=== PATIENT | female | born 1970 | race Caucasian/White ===

== ENCOUNTER 2021-08-18 17:17 | Emergency (ER) | payer OTHER ==
[2021-08-18] MEDS ORDERED: cefTRIAXone 1 GM Vial IM ONE (17:51)
--- NOTE | 2021-08-18 17:59 | EDM.PDOC ---
ED HPI GENERAL MEDICAL PROBLEM - General Chief Complaint: ENT Problem Stated Complaint: EAR INFECTION Time Seen by Provider: 08/18/21 17:25 Source of Information: Reports: Patient History Limitations: Reports: No Limitations - History of Present Illness INITIAL COMMENTS - FREE TEXT/NARRATIVE: Urgency department with complaints of left ear discomfort. Patient was seen on Sunday in the clinic for left ear discomfort and was given Ciprodex drops for an external otitis externa. Patient states that it has not gotten any better she called the clinic earlier today and they stated that she have a phone call back she called later in the afternoon since she did not hear back from them and they stated that they again would call her back and he never did. She comes into the emergency department due to the extreme amount of pain and discomfort she has in that left ear. Patient states that the drops have not helped with any of the discomfort she states that when she uses the eardrops it actually causes her to want to cry and becomes very tearful due to the discomfort and pain. She has not noticed any drainage she states that hearing is muffled in that ear. Patient denies any fever, nausea, vomiting. Onset: Gradual Location: Reports: Head Quality: Reports: Ache, Throbbing Severity: Moderate Improves with: Reports: None Worsens with: Reports: None Context: Reports: Other - Related Data Allergies Allergy/AdvReac Type Severity Reaction Status Date / Time No Known Allergies Allergy Verified 08/18/21 17:39 Home Meds: Home Meds Diclofenac Sodium [Voltaren] 100 mg PO 08/18/21 [History] FLUoxetine [PROzac] 40 mg PO DAILY 08/18/21 [History] Ibuprofen 800 mg PO Q8H 08/18/21 [History] Levothyroxine [Synthroid] 100 mcg PO DAILY 08/18/21 [History] buPROPion HCL [Wellbutrin Xl] 300 mg PO DAILY 08/18/21 [History] lisinopriL [Lisinopril] 10 mg PO DAILY 08/18/21 [History] traMADol [Ultram] 50 mg PO Q8H PRN 08/18/21 [History] ED ROS GENERAL - Review of Systems Review Of Systems: Comprehensive ROS is negative, except as noted in HPI. Constitutional: Reports: No Symptoms HEENT: Reports: Ear Pain Respiratory: Reports: No Symptoms Cardiovascular: Reports: No Symptoms Endocrine: Reports: No Symptoms GI/Abdominal: Reports: No Symptoms : Reports: No Symptoms Musculoskeletal: Reports: No Symptoms Skin: Reports: No Symptoms Neurological: Reports: No Symptoms Psychiatric: Reports: No Symptoms Hematologic/Lymphatic: Reports: No Symptoms Immunologic: Reports: No Symptoms ED EXAM, GENERAL - Physical Exam Exam: See Below Exam Limited By: No Limitations General Appearance: Alert, WD/WN, No Apparent Distress Ears: Hearing Grossly Normal, Other Ear Exam: Right Ear: Auricle Normal, Canal Normal, TM normal, Left Ear: Erythema, Swelling, Tenderness, TM Red, TM Bulging Nose: Normal Inspection, Normal Mucosa Throat/Mouth: Normal Inspection, Normal Lips Head: Atraumatic, Normocephalic Neck: Normal Inspection, Supple, Non-Tender, Full Range of Motion Respiratory/Chest: No Respiratory Distress, No Accessory Muscle Use, Chest Non- Tender Extremities: Normal Inspection, No Pedal Edema Neurological: Alert, Oriented, Normal Cognition, Normal Gait Psychiatric: Normal Affect, Normal Mood Course - Orders/Labs/Meds Meds: Medications Discontinued Medications Generic Name Dose Route Start Last Admin Trade Name Anthonyq PRN Reason Stop Dose Admin Ceftriaxone Sodium 1 gm 08/18/21 17:51 Ceftriaxone 1 Gm Vial IM 08/18/21 17:52 ONETIME ONE Departure - Departure Time of Disposition: 17:58 Disposition: Home, Self-Care 01 Condition: Good Clinical Impression: Otitis media Qualifiers: Otitis media type: unspecified Chronicity: acute Qualified Code(s): H66.90 - Otitis media, unspecified, unspecified ear Otitis externa Qualifiers: Otitis externa type: diffuse Chronicity: acute Laterality: left Qualified Code(s): H60.312 - Diffuse otitis externa, left ear - Discharge Information *PRESCRIPTION DRUG MONITORING PROGRAM REVIEWED*: Not Applicable *COPY OF PRESCRIPTION DRUG MONITORING REPORT IN PATIENT [place]: Not Applicable Instructions: Otitis Media, Adult, [id number], Otitis Externa, [id number] Referrals: Grazyna Ley NP [Primary Care Provider] - Additional Instructions: 1. rest 2. increase your water intake 3. Take all antibiotics as prescribed even if feeling better 4. Take a probiotic while on antibiotics to help promote healthy GI motility 5. Activity and diet as tolerated 6. Can use Ibuprofen and tylenol for any fever or discomfort 7. Follow up with your PCP or return if symptoms progress or worsen 8. Education provided to you regarding your illness, probiotics, antibiotic prescribed 9. Call with any questions or concerns - Assessment/Plan Assessment:: 1. otitis media 2. otitis externa Plan: 1. Rocephin IM given for infection 2. Script sent to the pharmacy 3. Patient and nursing staff was updated regarding the plan of care 4. Education provided the patient regarding activity, diet, rest, [id number] medication modalities, and follow-up care was provided 5. Patient and family are agreeable to the above plan of care 6. All questions and concerns were addressed with the patient and family prior to discharge
[2021-08-18] MEDS ORDERED: cefTRIAXone 1 GM, Lidocaine 1% 2.1 ML IM ONE ×2 (18:08)
== END 2021-08-18 18:35 | disposition home or self-care (01) ==
LOC: VM.ED 17:17
DX: H60.312 Diffuse otitis externa, left ear (principal); H66.92 Otitis media, unspecified, left ear; Z79.899 Other long term (current) drug therapy
CPT/HCPCS: 96372; 99282; 99283; J0696